=== PATIENT | female | born 1995 | race Two or more races ===

== ENCOUNTER 2022-10-29 10:31 | Outpatient (OUT) | payer OTHER, SELFPAY ==
[2022-10-29 11:20] LABS: Estimated Average Glucose 146 mg/dL; Glycohemoglobin A1C 6.7 % (4.5-6.2)
[2022-10-29 11:38] LABS: Alanine Aminotransferase 86 U/L (14-59); Albumin Globulin Ratio 0.9; Albumin Level 3.5 g/dL (3.4-5.0); Alkaline Phosphatase 133 U/L (46-116); Aspartate Amino Transferase 44 U/L (15-37); BUN Creatinine Ratio 23.5; Bilirubin Total 0.4 mg/dL (0.2-1.0); Calcium 8.9 mg/dL (8.5-10.1); Carbon Dioxide 27.3 mmol/L (21.0-32.0); Chloride 104 mmol/L (98-107); Estimated GFR (African America >60 (>=60); Estimated GFR (Non-African Ame >60 (>=60); Globulin 4.1 g/dL; Glucose 130 mg/dL (74-106); Potassium 4.3 mmol/L (3.5-5.1); Sodium 138 mmol/L (136-145); Total Protein 7.6 g/dL (6.4-8.2)
== END 2022-10-29 10:32 ==
PROVIDERS: PCP Nurse Practitioner Primary Care; Visit Provider Nurse Practitioner Primary Care
DX: E11.9 Type 2 diabetes mellitus without complications (principal)
CPT/HCPCS: 36415; 80053; 83036

== ENCOUNTER 2022-10-31 12:56 | Outpatient (OUT) | payer OTHER, SELFPAY ==
--- NOTE | 2022-10-31 13:10 | XR_ITS ---
The [address] [address] Patient Name: JOSE CARLOS FORMAN MRN: [id number] date: 1995 Sex: F Assigned Patient Location: [facility] Current Patient Location: [facility] Accession/Order Number: [id number] Exam Date: 10/31/2022 13:20 Report Date: 10/31/2022 13:45 At the request of: IAN JAMES Procedure: XR chest 2V EXAM: XR chest 2V HISTORY: Left-sided chest wall pain R07.89 COMPARISON: 10/15/2022 TECHNIQUE: Upright PA and lateral chest x-ray FINDINGS: The study is limited by shallow inspiration. The heart is not enlarged and the vasculature is not distended. No acute infiltrate, effusion or pneumothorax is identified. The osseous structures are grossly intact. IMPRESSION: No apparent acute infiltrate or evidence of cardiac decompensation. The differences in technique, the overall appearance of the chest is essentially unchanged. Electronically authenticated by: ALFONZO CHOI Date: 10/31/2022 13:45
== END 2022-10-31 12:57 ==
LOC: RAD 12:57
PROVIDERS: PCP Nurse Practitioner Primary Care; Visit Provider Nurse Practitioner Primary Care
DX: R07.89 Other chest pain (principal); R04.2 Hemoptysis
CPT/HCPCS: 71046

== ENCOUNTER 2022-12-31 11:42 | Emergency (ER) | payer OTHER, SELFPAY ==
[2022-12-31 11:50] VITALS: BP 128/86; PULSE 106; RESP 18; TEMP 36.9; O2SAT 96; BMI 34.3
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
[2022-12-31] MEDS: IBUPROFEN 400 MG TABLET 800 MG PO (12:47)
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
[2022-12-31 13:39] VITALS: BP 118/80; PULSE 84; RESP 16; O2SAT 99
== END 2022-12-31 13:40 | disposition home or self-care (01) ==
PROVIDERS: Emergency Provider Emergency Medicine; PCP Nurse Practitioner Primary Care
DX: S20.219A Contusion of unspecified front wall of thorax, initial encounter (principal); S20.111A Abrasion of breast, right breast, initial encounter; Y04.8XXA Assault by other bodily force, initial encounter
CPT/HCPCS: 71045; 99284